=== PATIENT | female | born 1975 | race Caucasian/White ===

== ENCOUNTER 2025-02-04 01:08 | Inpatient (IN) | payer OTHER ==
[2025-02-04 01:15] VITALS: BMI 17.6
[2025-02-04] MEDS ORDERED: BENZOCAINE/MENTHOL (CHLORASEPTIC ) LOZENGE MM PRN (01:34)
[2025-02-04] MEDS ORDERED: NALOXONE (NARCAN) HCL 4 MG/0.1 ML SPRAY NS PRN (01:34)
[2025-02-04] MEDS ORDERED: guaiFENesin 600 MG TABLET.ER (FP) PO PRN (01:34)
[2025-02-04] MEDS ORDERED: NICOTINE POLACRILEX 2 MG GUM BUC PRN (01:34)
[2025-02-04] MEDS ORDERED: BENZONATATE 200 MG CAPSULE PO PRN (01:34)
[2025-02-04] MEDS ORDERED: LOPERAMIDE HCL 2 MG CAPSULE PO PRN (01:34)
[2025-02-04] MEDS ORDERED: DICYCLOMINE HCL 10 MG CAPSULE PO PRN (01:34)
[2025-02-04] MEDS ORDERED: IBUPROFEN 400 MG TABLET (FP) PO PRN (01:34)
[2025-02-04] MEDS: levETIRAcetam 500 MG TABLET (FP) PO SCH (02:44)
[2025-02-04] MEDS: PRENATAL VITAMINS W/ FOLIC ACID TABLET (FP) PO SCH (10:39)
[2025-02-04] MEDS: ONDANSETRON *ODT* 4 MG TABLET SL PRN (16:27)
[2025-02-04] MEDS: MAG HYDROX/AL HYDROX/SIMETH 30 ML UNIT-DOSE CUP PO PRN (20:25)
[2025-02-04] MEDS: BISMUTH SUBSALICYLATE 524 MG/30 ML PO PRN (21:49)
[2025-02-04] MEDS: MELATONIN 5 MG TABLETS PO SCH (22:22)
[2025-02-04] MEDS: THIAMINE 100 MG TABLET PO SCH (22:22)
[2025-02-04] MEDS: hydrOXYzine PAMOATE 25 MG CAPSULE (FP) PO PRN (23:29)
[2025-02-04] MEDS: METHOCARBAMOL 500 MG TABLET PO PRN (23:29)
[2025-02-05] MEDS: MAGNESIUM HYDROX 2400MG/30ML ORAL SUSPENSION 30 ML CUP PO PRN (00:40)
[2025-02-05] MEDS: IBUPROFEN 600 MG TABLET (FP) PO PRN (06:52)
[2025-02-05] MEDS: ACETAMINOPHEN 325 MG TABLET (FP) PO PRN (10:26)
[2025-02-05 11:47] LABS: MCHC 33.1 g/dl (32.2-35.5); MEAN CELL VOLUME 92.9 fl (79.4-94.8); MEAN PLT VOLUME 11.2 fl (9.4-12.3); RDW 13.1 % (12.2-17.1)
[2025-02-05 12:12] LABS: CO2 34.0 mmol/L (21-32); GLUCOSE,RANDOM 92.0 mg/dL (74-106)
[2025-02-05 12:15] LABS: CREATININE 0.7 mg/dL (0.55-1.3); SGOT/AST 88.0 U/L (15-37); SGPT/ALT 66.0 U/L (13-61)
[2025-02-05 12:17] LABS: TOT PROT 5.9 g/dl (6.4-8.2)
[2025-02-05 12:18] LABS: ALK PHOS 170.0 U/L (45-117)
[2025-02-05] MEDS: POLYETHYLENE GLYCOL (HEALTHYLAX) 3350 17 GM PACKET PO PRN (17:08)
[2025-02-05] MEDS: MAGNESIUM CITRATE 300 ML BOTTLE PO ONE (17:46)
[2025-02-05] MEDS: traZODone HCL 50 MG TABLET (FP) PO SCH (22:20)
[2025-02-06] MEDS: DOCUSATE SODIUM 100 MG CAPSULE (FP) PO SCH (14:41)
[2025-02-06] MEDS: NICOTINE 21 MG/24 HOURS TOPICAL PATCH TD SCH (14:41)
[2025-02-06] MEDS: POLYETHYLENE GLYCOL (HEALTHYLAX) 3350 17 GM PACKET PO SCH (14:41)
[2025-02-07] MEDS: SENNOSIDES 8.8 MG/5 ML SYRUP PO ONE (17:01)
[2025-02-08 09:06] VITALS: BP 160/100; PULSE 87; RESP 16; TEMP 96.9
== END 2025-02-08 08:52 | disposition home or self-care (01) | DRG 775 ==
LOC: YASAS 01:08 → Y3N 02:02
PROVIDERS: ADMIT Allergy & Immunology; ATTEND Allergy & Immunology
PROC: HZ2ZZZZ Detoxification Services for Substance Abuse Treatment (ICD-10-PCS; principal; 2025-02-04)
DX: F10.230 Alcohol dependence with withdrawal, uncomplicated (principal); F17.210 Nicotine dependence, cigarettes, uncomplicated; F50.9 Eating disorder, unspecified; K59.00 Constipation, unspecified
CPT/HCPCS: 36415; 80053; 80305; 80307; 81025; 85027; 86780; 93005; 93010; Q0162